=== PATIENT | male | born 1990 | race African-American/Black ===

== ENCOUNTER 2016-08-13 02:28 | Emergency (ER) | payer BC, MEDICAID ==
[~2016-08-13] VITALS: Ht 170.2 cm; Wt 68.0 kg
[2016-08-13] MEDS ORDERED: ACETAMINOPHEN 650MG/20.3ML UDC PO ONE (03:30)
[2016-08-13 05:00] VITALS: BP 125/53
== END 2016-08-13 05:48 | disposition home or self-care (01) ==
LOC: ER 02:28
DX: S90.32XA Contusion of left foot, initial encounter (principal); F17.210 Nicotine dependence, cigarettes, uncomplicated; F12.10 Cannabis abuse, uncomplicated; Y08.89XA Assault by other specified means, initial encounter; Y93.89 Activity, other specified; Y92.524 Gas station as the place of occurrence of the external cause; Y99.8 Other external cause status
CPT/HCPCS: 73630; 99283; 99284

== ENCOUNTER 2019-09-26 09:12 | Emergency (ER) | payer BC, MEDICAID ==
[~2019-09-26] VITALS: Ht 175.3 cm; Wt 70.0 kg
[2019-09-26] MEDS ORDERED: SODIUM CHLORIDE 0.9% 1,000 ML IV ONE ×2 (09:34→11:05)
[2019-09-26 10:28] LABS: BASOPHILS % 0.7 % (0.0-2.0); EOSINOPHILS % 1.7 % (0.0-5.0); HEMATOCRIT. 44.9 % (42.0-52.0); HEMOGLOBIN. 15.3 g/dL (14.0-18.0); LYMPHOCYTES % 25.8 % (20.0-50.0); MEAN CORPUSCULAR HEMOGLOBIN 30.1 pg (28.0-32.0); MEAN PLATELET VOLUME 8.4 fl (7.4-10.4); MONOCYTES % 8.5 % (2.0-8.0); NEUTROPHILS % 63.3 % (40.0-76.0); PLATELET 200 x1000/uL (130-400); RED CELL DISTRIBUTION WIDTH 13.2 % (11.6-14.6)
[2019-09-26 10:34] LABS: CHLORIDE 107 mEq/L (98-107)
[2019-09-26 10:38] LABS: ETHANOL BLOOD < 10 mg/dL
[2019-09-26 12:17] LABS: *AMPHETAMINES SCREEN URINE NEGATIVE (NEGATIVE)
[2019-09-26 12:18] LABS: *BARBITURATES SCREEN URINE NEGATIVE (NEGATIVE); *BENZODIAZEPINES SCREEN URINE NEGATIVE (NEGATIVE); *COCAINE SCREEN URINE NEGATIVE (NEGATIVE); METHADONE URINE SCREEN NEGATIVE (NEGATIVE); OPIATES URINE SCREEN NEGATIVE (NEGATIVE)
[2019-09-26 12:22] LABS: PHENCYCLIDINE URINE SCREEN NEGATIVE (NEGATIVE)
[2019-09-26 12:24] LABS: CANNABINOID URINE SCREEN PRESUMTIVE POSITIVE (NEGATIVE)
[2019-09-26 13:20] VITALS: BP 109/60
== END 2019-09-26 13:30 | disposition home or self-care (01) ==
LOC: ER 09:12
DX: R00.2 Palpitations (principal); F12.10 Cannabis abuse, uncomplicated
CPT/HCPCS: 36415; 71045; 80053; 80305; 80320; 83735; 83880; 84443; 84484; 85025; 93005; 99285; J7030; G0480

== ENCOUNTER 2020-08-24 22:00 | Emergency (ER) | payer SELFPAY ==
[~2020-08-24] VITALS: Ht 175.3 cm; Wt 69.0 kg
[2020-08-24] MEDS ORDERED: IBUPROFEN 600MG TABLET PO ONE (22:30)
[2020-08-25] MEDS ORDERED: IBUP-2028 MT (00:09)
[2020-08-25 01:11] VITALS: BP 123/87
== END 2020-08-25 01:11 | disposition home or self-care (01) ==
LOC: ER 22:00
DX: S82.201A Unspecified fracture of shaft of right tibia, initial encounter for closed fracture (principal); F12.10 Cannabis abuse, uncomplicated; Z87.81 Personal history of (healed) traumatic fracture; V23.4XXA Motorcycle driver injured in collision with car, pick-up truck or van in traffic accident, initial encounter; Y93.89 Activity, other specified; Y92.488 Other paved roadways as the place of occurrence of the external cause; Y99.8 Other external cause status
CPT/HCPCS: 29505; 73560; 73590; 73610; 99284